=== PATIENT | female | born 1960 | race Caucasian/White ===

== ENCOUNTER 2018-01-11 21:02 | Emergency (ER) | payer OTHER ==
[2018-01-11 21:27] VITALS: BP 158/75; Ht 154.9 cm
== END 2018-01-12 02:00 | disposition home or self-care (01) ==
LOC: ED 21:02
DX: S61.211A Laceration without foreign body of left index finger without damage to nail, initial encounter (principal); W31.89XA Contact with other specified machinery, initial encounter; Y93.E9 Activity, other interior property and clothing maintenance; Y92.89 Other specified places as the place of occurrence of the external cause; Y99.0 Civilian activity done for income or pay
CPT/HCPCS: 90715; J2001